=== PATIENT | male | born 1990 | race Caucasian/White ===

== ENCOUNTER 2024-08-14 13:19 | Emergency (ER) | payer BC ==
[~2024-08-14] VITALS: Ht 182.9 cm; Wt 135.6 kg
[2024-08-14] MEDS ORDERED: MEDR4PAK PO (17:08)
[2024-08-14 17:15] VITALS: BP 141/86; TEMP 98.6; O2SAT 98
== END 2024-08-14 17:21 | disposition home or self-care (01) ==
LOC: M ED 13:19
DX: M54.31 Sciatica, right side (principal); Z79.899 Other long term (current) drug therapy